=== PATIENT | female | born 1990 | race Hispanic/Latino ===

== ENCOUNTER 2020-01-30 | Emergency (ER) | payer SELFPAY ==
[~2020-01-30] MED LIST: METFORMIN500 MG PO; TRI-SPRINTEC PO; [UNRECOGNIZED DRUG - REMARK]
[2020-01-30] MEDS ORDERED: AMOXICILLIN500 MG PO (21:47)
== END 2020-01-30 22:27 | disposition home or self-care (01) | DRG 153 ==
DX: J02.9 Acute pharyngitis, unspecified (principal)